=== PATIENT | female | born 1980 | race Caucasian/White ===

== ENCOUNTER 2019-10-12 11:42 | Outpatient (CLI) | payer BC, SELFPAY ==
--- NOTE | ~2019-10-12 | XR_ITS ---
EXAMINATION: XR fl inj hip LT for MR/CT DATE: 10/12/2019 12:50 INDICATION: Left hip pain TECHNIQUE: A time-out was performed to verify the patient's name, date of , and procedure to b e performed. The procedure including the risks, benefits, and alternatives was discussed with the pat ient. Risks discussed included bleeding and infection. The patient understood the risks and agreed to proceed. The skin overlying the left hip joint was prepped and draped in usual sterile fashion. An esthetic was administered with 1% lidocaine subcutaneously. A 22 G needle was advanced under fluoros copic guidance into the joint. Injection of 0.6 mL of Omnipaque 240 confirmed intra-articular positi on of the needle. Subsequently, injectate consisting of 12 mL of 2:1:1 mixture of sterile saline:Omn ipaque 240:1% lidocaine mixed 200:1 with 529 mg/mL Multihance gadolinium contrast was injected. [place] of contrast was seen confirming intra-articular administration. The needle was removed and the ent ry site was cleaned and dressed. There were no immediate complications. Fluoroscopy exposure time wa s 0.1 minutes. The total number of images was 7. FINDINGS: Real-time fluoroscopy demonstrates the needle and contrast the left hip joint. IMPRESSION: 1. Left hip joint injection of a dilute gadolinium contrast mixed for subsequent MRI arthrogram which will be dictated separately. Reviewed, dictated and finalized at location A. IMPRESSION: 1. Left hip joint injection of a dilute gadolinium contrast mixed for subsequen t MRI arthrogram which will be dictated separately.
--- NOTE | ~2019-10-12 | MR_ITS ---
EXAMINATION: MR hip LT w con DATE: 10/12/2019 13:34 INDICATION: Left hip pain post marathon in August 2018. TECHNIQUE: Magnetic resonance imaging (MRI) of the left hip was performed without intravenous contra st. Sequences included full-field axial PD-weighted FS FSE and T1-weighted FSE, coronal of the pelvis with PD-weighted FS FSE, small field of view of the affected hip with axial PD-weighted FS FSE, sag ittal PD-weighted FS FSE and coronal PD weighted FS FSE. Additional radial T1-weighted FGR oriented o rthogonal to the acetabular rim were obtained for evaluation of the labrum. COMPARISON: None FINDINGS: Bones/labrum/cartilage: Alignment is normal. No fracture, avascular necrosis or pathologic marrow replacing process. Left ac etabular labrum is normal. Mild left hip osteoarthritis with partial thickness cartilage loss resulti ng nonuniform joint space narrowing at the anterosuperior and posterior aspects of the joint space. Fluid: Physiologic amount of fluid in the right hip joint space. No bursitis or other abnormal fluid collect ions. Soft tissues: Normal and symmetric muscle bulk and signal in the pelvis and visualized proximal thighs. Again seen is mild tendinopathy at the distal left radius minimus tendon without discrete tear. There has been i nterval decrease in the now minimal surrounding fluid signal consistent with improving left gluteus m inimus bursitis. The iliopsoas, remaining gluteal and proximal hamstring tendons are normal. Limited evaluation of visceral organs of the pelvis is unremarkable. No pathologically enlarged pelvic/ingui nal lymphadenopathy. IMPRESSION: 1. Mild left gluteus minimus tendinopathy without discrete tear and with slight improvement of mild a ssociated bursitis. 2. Mild left hip osteoarthritis. Normal labrum. Reviewed, dictated and finalized at location A. IMPRESSION: 1. Mild left gluteus minimus tendinopathy without discrete tear and with slight improvement of mild associated bursitis. 2. Mild left hip osteoarthritis. Normal labrum.
== END 2019-10-12 11:43 | disposition home or self-care (01) ==
LOC: ANHIMG 11:46
PROVIDERS: PCP Family Medicine; Visit Provider Internal Medicine
DX: M16.12 Unilateral primary osteoarthritis, left hip (principal)
CPT/HCPCS: 27093; 73722; 77002; A9577; Q9966

== ENCOUNTER → 2022-02-02 12:12 | Outpatient (CLI) | payer BC, SELFPAY ==
--- NOTE | ~2022-02-02 | MM_ITS ---
EXAMINATION: MM screening [facility] BI w baldev HISTORY: Screening mammogram TECHNIQUE: Craniocaudal and mediolateral oblique 3-D tomosynthesis images were obtained and synthetic 2-D images were generated. CAD analysis was submitted and interpreted. COMPARISON: 04/19/2019, 03/15/2015, 03/08/2015 BREAST PARENCHYMAL COMPOSITION: There are scattered areas of fibroglandular density. FINDINGS: There is no suspicious mass, calcification, or architectural distortion to suggest malignan cy in either breast. There has been no suspicious interval change. IMPRESSION: 1. No mammographic evidence of malignancy. 2. Recommend routine screening mammography in one year. BI-RADS Category 1: Negative Reviewed, dictated and finalized at location A.
== END ==
PROVIDERS: PCP Nurse Practitioner; Visit Provider Nurse Practitioner
DX: Z12.31 Encounter for screening mammogram for malignant neoplasm of breast (principal)
CPT/HCPCS: 77063; 77067

== ENCOUNTER → 2023-07-06 07:20 | Outpatient (CLI) | payer BC, SELFPAY ==
--- NOTE | ~2023-07-06 | MM_ITS ---
EXAMINATION: MM screening [facility] BI w baldev HISTORY: Screening mammogram TECHNIQUE: Craniocaudal and mediolateral oblique 3-D tomosynthesis images were obtained and synthetic 2-D images were generated. CAD analysis was submitted and interpreted. COMPARISON: 02/02/2022, 04/19/2019 bilateral screening mammogram examinations BREAST PARENCHYMAL COMPOSITION: There are scattered areas of fibroglandular density. FINDINGS: There is no evidence of suspicious mass, calcification, or architectural distortion to sugg est malignancy in either breast. There has been no suspicious interval change. IMPRESSION: 1. No mammographic evidence of malignancy. 2. Recommend routine screening mammography in one year. BI-RADS Category 1: Negative.. Reviewed, dictated and finalized at location A. D INCOME DIRECTOR
== END ==
PROVIDERS: PCP Nurse Practitioner; Visit Provider Nurse Practitioner
DX: Z12.31 Encounter for screening mammogram for malignant neoplasm of breast (principal)
CPT/HCPCS: 77063; 77067

== ENCOUNTER 2024-10-14 07:12 | Outpatient (CLI) | payer OTHER, SELFPAY ==
--- NOTE | ~2024-10-14 | MM_ITS ---
EXAMINATION: MM screening [facility] BI w [facility]dev HISTORY: Screening TECHNIQUE: Craniocaudal and mediolateral oblique 3-D tomosynthesis images were obtained and synthetic 2-D images were generated. CAD analysis was submitted and interpreted. COMPARISON: Comparison to multiple prior studies sequentially, with oldest reviewed study dated 10/2014. BREAST PARENCHYMAL COMPOSITION: Comparison to multiple prior studies sequentially, with oldest review ed study dated 03/08/2015. FINDINGS: There is no evidence of suspicious mass, calcification, or architectural distortion to sugg est malignancy in either breast. There has been no suspicious interval change. IMPRESSION: 1. No mammographic evidence of malignancy. 2. Recommend routine screening mammography in one year. BI-RADS Category 1: Negative Reviewed, dictated and finalized at location A.
== END 2024-10-14 07:13 | disposition home or self-care (01) ==
PROVIDERS: PCP Nurse Practitioner; Visit Provider Nurse Practitioner
DX: Z12.31 Encounter for screening mammogram for malignant neoplasm of breast (principal)
CPT/HCPCS: 77063; 77067